=== PATIENT | male | born 1955 | race Caucasian/White ===

== ENCOUNTER 2022-12-17 16:22 | Observation (INO) ==
--- NOTE | 2022-12-17 16:42 | ED Triage Note ---
Date of Service December 17, 2022 History of Present Illness This patient was briefly evaluated while in triage. An abbreviated physical exam was performed. This patient is a 67-year-old Male with past medical history of borderline DM who presents to the ED for evaluation of testicular pain, reports history of 2 cysts toward the left side that started 3-4 days. No fevers, no urinary symptoms. Denies trauma/injury to the area. Physical Exam CONSTITUTIONAL: No acute distress. Well appearing. RESPIRATORY: Clear to auscultation bilaterally. Equal expansion bilaterally. CARDIOVASCULAR: Regular rate and rhythm with no murmurs, rubs or gallops. Normal peripheral perfusion. GASTROINTESTINAL: Soft, nontender. No CVA tenderness. NEUROLOGIC: Alert and oriented X 4 with normal affect. Initial orders for labs and / or imaging were placed and patient was placed in the waiting area until a bed is available. Please see further documentation for the full ED course.
[2022-12-17 18:05] LABS: Basophils # (auto) 0.04 K/uL (0-0.2); Basophils % (auto) 0.6 %; Eosinophils # (auto) 0.22 K/uL (0-0.50); Eosinophils % (auto) 3.2 %; Hematocrit (blood only) 43.8 % (42.0-52.0); Hemoglobin 15.7 g/dl (14.0-18.0); Immature Granulocytes # (auto) 0.01 K/uL (0.01-0.20); Immature Granulocytes % (auto) 0.1 %; Lymphocytes # (auto) 1.48 K/uL (1.2-3.4); Lymphocytes % (auto) 21.4 %; Mean Corpuscular Hemoglobin 32.2 pg (25.0-34.0); Mean Corpuscular Hgb Conc 35.8 g/dL (32.0-36.0); Mean Corpuscular Volume 89.8 fL (80.0-100.0); Mean Platelet Volume 10.2 fL (9.4-12.4); Monocytes # (auto) 0.61 K/uL (0.11-0.59); Monocytes % (auto) 8.8 %; Neutrophils # (auto) 4.54 K/uL (1.40-6.50); Neutrophils % (auto) 65.9 %; Platelet Count 132 K/uL (130-400); RDW Coefficient of Variation 11.4 % (11.5-14.5); RDW Standard Deviation 37.2 fL (36.4-46.3); Red Blood Count 4.88 M/uL (4.70-6.10)
[2022-12-17 18:36] LABS: Alanine Aminotransferase 55 U/L (7-52); Albumin Globulin Ratio 1.7 (0.9-2); Albumin Level 4.7 gm/dl (3.4-5.0); Alkaline Phosphatase 67 U/L (34-104); Anion Gap 6 (3-11); Aspartate Aminotransferase 35 U/L (13-39); BUN Creatinine Ratio 15.1 (10-20); Bilirubin,Total 0.7 mg/dl (0.2-1.0); Blood Urea Nitrogen 13 mg/dl (6-23); Calcium 10.6 mg/dl (8.5-10.1); Carbon Dioxide 30 mmol/L (21-32); Chloride 94 mmol/L (98-107); Est GFR (Non-African American) 89.7 ml/min; Globulin 2.7 gm/dl (2.5-4.0); Glucose 523 mg/dl (70-99(Fasting)); Potassium 4.7 mmol/L (3.5-5.1); Sodium 130 mmol/L (136-145); Total Protein 7.4 gm/dl (6.0-8.3)
--- NOTE | 2022-12-17 18:37 | Ultrasound Report ---
TESTICULAR ULTRASOUND HISTORY: Scrotal lumps. testicle pain/swelling, reports feeling lumps COMPARISON: None. FINDINGS: Right testis: 4.0 x 2.2 x 2.7 cm. There are no intratesticular masses. Normal color flow. No hydrocel e. The epididymis is unremarkable. Left testis: 3.5 x 2.1 x 2.4 cm. Small varicocele is noted. There are no intratesticular masses. Norm al color flow. No hydrocele. The epididymis is unremarkable. Miscellaneous: The patient's area of interest within the posterior scrotum and perineum there are 2 c omplex subcutaneous nodules measuring 20 x 20 x 12 mm and 9 x 7 x 5 mm, respectively. IMPRESSION: 1. Normal bilateral testes. 2. Small left varicocele. 3. Complex subcutaneous nodules within the posterior scrotum and perineum at the patient's area of in [facility]. These are nonspecific but could be due to granulomas or phlegmon/developing abscesses. ACT 112: Negative or not required by law. Electronically signed by: Delgado Wells M.D. 12/17/2022 6:35 PM
[2022-12-17] MEDS ORDERED: PIPERACILLIN/TAZOBACTAM 4.5 GM/120 ML BAG IV ONE (21:07)
[2022-12-17] MEDS ORDERED: ACETAMINOPHEN 1,000 MG/100 ML VIAL IV STA (21:07)
[2022-12-17] MEDS ORDERED: SODIUM CHLORIDE 0.9% 1000ML 1,000 ML IV ONE (21:07)
--- NOTE | 2022-12-17 21:23 | Urology Consultation ---
Date of Consultation December 17, 2022 Assessment & Plan (1) Scrotal abscess: I discussed with the treating emergency room physician and he is having the hospitalist admit the patient. We recommend proceeding as follows: It appears as though the patient will require an incision and drainage of his 2 scrotal abscesses. I discussed case with my attending physician Dr. Andrea and he feels that we should get a CT scan of the pelvis just to ascertain the depth in more detail of the potential abscess. Based on this information he will decide if he can perform this at the bedside or if you require a trip to the operating room. Implement n.p.o. status until determination is made what procedure invention the patient will require Broad-spectrum antibiotics was been ordered by the treating emergency room physician in the form of Zosyn. Would recommend continuing this antibiotic. Blood cultures have been ordered along with a urinalysis. Antibiotics can be tailored based on these results along with any cultures that are obtained at the time of incision and drainage of this abscess Analgesics to be provided As needed antiemetics can be provided Would recommend hydrating the patient with IV fluids It also appears as though the patient is a new diabetic. The medical service is admitting the patient and they will perform management of this condition. Additional recommendations be forthcoming based on his pending CAT scan as well as results of incision and drainage ATTENDING NOTE: Patient independently evaluated and assessed examined and interviewed. Agree with note as above. Patient has 2 fluid collections on the scrotum. Has developed and worsened over the last few days. Patient had previously been doing with some discomfort in the groin and testicle was concerned due to the large fluid collection that had started to develop. Did notice some drainage as well as debris over top of the area. Did not have a considerable drainage or spontaneous drainage to alleviate pressure. Worsened in pain and developed warmth, redness, swelling, tenderness, and irregular coloring. Patient had 2 specific areas 1 was more of a vesicular/pimple area in the left posterior scrotum. On the anterior portion of the right scrotum was a more significant swollen fluctuant area. Both areas were consistent with abscess on physical exam. Patient had undergone scrotal ultrasound as well as CT scan. No signs of tracking no inclusion of the tissues below the subcutaneous tissues. The testicles and spermatic cord both appear to be free from any involvement in the area. Extensive conversation with patient. Patient is newly diagnosed as diabetic. Blood sugars were considerably elevated. Patient is going to be admitted for medical management. Due to findings of scrotal abscess with concern for possible worsening infection as well as development of more significant disease risk and benefits were extensively reviewed. Patient had eaten around 2:00 today. Reviewed bedside option. Patient had previously had abscess on leg which he stated was drained at bedside and he tolerated without major issue. Patient was given a course of analgesic medication IV in order to control pain had been given Zosyn preprocedure. A consent was filled out and signed by the patient a witness and myself. Risk and benefits have been extensively reviewed. Incision and drainage and packing of abscess x2. Abscess of the right and left hemiscrotum. Right scrotal abscess dimensions 1.8 x 2.7 x 3.4 cm. Left scrotal abscess 1.1 x 1.3 x 1.7 cm's. Procedure performed by: Alf Andrea II Indications: Scrotal abscess. Newly diagnosed diabetic. Discussed with patient risks, benefits, and alternatives. These include, but are not limited to, risks of bleeding, infection risks and possible injury. Risks and benefits of not proceeding and observation alternatives were discussed extensively. Discussed utilization of IV antibiotics for treatment. Discussed possible issues with development of cellulitis, more significant infection possible septicemia, and development of fasciitis with possibility of necrotizing fasciitis/Tushar's gangrene. Written consent was obtained prior to the procedure Time Out: Completed, the identity of patient was confirmed via name and date of , by patient and the correct site and the procedure to be performed were confirmed Bilateral incision and drainage. Anesthesia: 1% lidocaine with epi was injected around both of the large abscesses. Patient was prepped and draped in the usual sterile fashion using: betadine The lesions were inspected. After adequate injection of lidocaine into the surrounding tissue. Additional lidocaine was injected into the area around the abscess and over top of the lesions bilaterally. A aspiration was completed of the larger abscess and this fluid was sent off for microbiologic examination. A culture was completed of this fluid. A 11 blade scalpel was then used to make an incision approximately 2 cm in length into the abscess over the right hemiscrotum. A large amount of purulent fluid was able to be drained. 2 major chambers were discovered. A probe was then used to get a deep wound culture. The wound opening was then probed extensively. Multiple additional small loculations were able to be open. Multiple areas of purulent fluid were able to be drained. The cavity was found to be down into the subcutaneous tissues. The tissue did appear to be viable with good blood flow and bleeding. No necrotic appearing tissue was noted. A small amount of abscess cavity had to be gently debrided away utilizing scissors to clear out the remainder of the cavity. This was then irrigated copiously. After completing the flushing of this wound and attention was then taken to the abscess in the posterior portion of the left hemiscrotum. Again this area has been prepped and draped in the sterile fashion. The local lidocaine has been adequately able to achieve anesthetic. A incision was made into this abscess cavity as well. The incision length was approximately 1.3 cm in length. This cavity was then probed. Again a moderate amount of purulent fluid was able to be drained. This also had a small area of abscess cavity that need to be debrided away utilizing sharp scissors. The area was then copiously flushed. It was probed multiple times and some small chamber/loculations were able to be freed. This was then irrigated copiously. Sterile saline was used for irrigation. Both wounds were then inspected. No signs of necrotic material or debris. No further loculations or other chambers or runs. The area was cleaned and irrigated a final time. A iodoform packing was then placed into each of the wounds. The packing had been folded in half and placed into the deep portion of the cavity and packed. At the wound opening of each 2 strands of each and were able to be seen of the packing. The patient was then further cleaned. Bandages were placed over the area. Patient had tolerated the procedure without major issue or concern. Had no cons iderable amount of pain or major issues. The tissue appeared to be viable and was bleeding after opening however a large amount of bleeding or major issue was not appreciated. Patient Status: Tolerated procedure well with minimal discomfort. Vital signs were stable Complications: No complications Patient Instructions: Patient was instructed to monitor and to notify a provider for bleeding, signs and symptoms of UTI, or fevers. Call if any issues. Patient is going to be transferred to the floor for observation overnight. Patient is newly diagnosed as diabetic. We will need to undergo further assessment and work-up as well as management of this over time. Patient's vitals have been assessed both pre and post procedure. Temperature was 36.8. Oxygen saturation was 98%. Blood pressure was 115/68 and pulse was 68. Patient's white count was 6.9. Creatinine was 0.86. Hemoglobin was 15.7. Patient scrotal ultrasound as well as CT scan were both reviewed interpreted by myself. The house staff reads were not yet available. No obvious signs of tracking into the deep or inguinal tissues. Both abscess cavities appear to be well contained. And appear to be in the subcutaneous tissue/skin. Discussed plan with patient need for wound care afterwards. Discussed healing by secondary intent. Discussed dressing and wound care. We will likely need to be seen by wound care nurses in the morning to schedule follow-up and monitoring and management of packing over the next few days. Will likely need to have packing changed every day or every other day for the next week to 2 weeks. We will likely need a oral antibiotic to go home on for the next 7 to 10 days. We will await the cultures and be able to de-escalate based on the analysis. Had currently had Zosyn preprocedure and tolerated without major issue. Patient is not from the area and he is likely leaving in the next 10 to 14 days. We will likely need follow-up in our office prior to this. Patient's complicat ed medical and surgical history was all reviewed and summarized above. All imaging has been reviewed. Labs and vitals were reviewed and mentioned as above. 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 Otherwise we will plan to monitor overnight and be available if the team needs anything further. Patient did have some additional small areas of possible sebaceous cyst in the scrotal region. None appear to be actively infected or significantly enlarging or changing. Did discuss diabetes and risk of infections and abscess with some of the sequelae of diabetic issues. Patient is going to actively work on controlling blood sugars moving forward. We will otherwise plan to move forward to monitor. History of Present Illness Reason for Consultation: Scrotal abscess History of Present Illness This is a 67-year-old male who presented to the emergency department secondary to 4 days of testicular swelling. The patient said that he noted a lump and swelling of his testicles greatest on the right testicle. He also noted a smaller one on the left side near his perineum. He notes it was initially the size of a peanut but has nearly tripled in size over the past 4 days. He says with the increase in size it has become increasingly tender. He says he has never had this problem before. He denies any trauma, cuts, or insect or tick bites to this area. With this presentation he has not had any systemic symptoms specifically denying any fevers, shakes, or chills. He denies any abdominal pain. He denies any nausea or vomiting. He denies any dysuria. It is nowhere the mention that the patient denies any previous medical problems. He says that he does not see a doctor regularly. He notes that his most recent oral intake was at approximately 2:00 PM today. Since arrival to the hospital the patient has had labs and imaging which independent reviewed. He did have an ultrasound of his testicles performed. The testicles were noted to be normal bilaterally and he was noted to have a small left-sided varicocele. There are 2 complex subcutaneous nodules noted measuring 20 x 20 x 12 mm and another measuring 9 x 7 x 5 mm respectively. Labs included CBC her white blood cell count, hemoglobin, hematocrit, platelet count were all normal. Chemistry profile showed sodium was 130 with a normal potassium. BUN and creatinine were both normal. Patient presented with a glucose level of 523. There is no significant elevation of LFTs other than a minor elevation of the ALT at 55. Thus far in the emergency department the patient has received intravenous acetaminophen for analgesics. He has received 1 L of normal saline solution and he has received 4.5 g of Zosyn. At the time of my interview the patient was resting comfortably in bed he was in no distress. Concerning past medical history the patient denies any medical problems Concerning past surgical history the patient has had multiple orthopedic procedures including 2 neck surgeries, knee surgery, and a shoulder surgery all secondary to athletic injuries Concerning allergies he denies any allergies Concerning medications he says he takes an aspirin daily Social history he says he is a non-smoker and has been a lifetime non-smoker Concerning family history he says he does have an uncle who is diabetic Allergies Allergy/AdvReac Type Severity Reaction Status Date / Time No Known Allergies Allergy Verified 12/17/22 21:15 Home Medications Medication Instructions Recorded Confirmed Type aspirin 325 mg tablet,delayed 975 mg PO DAILY 12/17/22 12/17/22 History release Patient History Social History Smoking Status: Never smoker Preferred Language: Croatian Feels Safe at Home: Yes Review of Systems Constitutional: no fever and no chills Eyes: + corrective lenses Ear, Nose, Mouth, Throat: no ear pain Respiratory: no cough and no dyspnea Cardiovascular: no chest pain Gastrointestinal: no abdominal pain, no nausea and no vomiting Genitourinary: + as per Subjective / HPI Musculoskeletal: no back pain Integumentary: no rash Neurologic: no localized weakness Physical Exam Constitutional: WD/WN, vitals as above Eyes: no conjunctival abnormality Wears glasses ENMT: Ears: no hearing impairment and no external ear abnormality Mouth: no oropharynx abnormality Neck: trachea midline Respiratory: normal respiratory effort; no respiratory distress and no labored breathing Cardiovascular: Rate/Rhythm: regular rate and regular rhythm Gastrointestinal (Abdomen): Abdomen is soft, nondistended, and nontender. Musculoskeletal: No calf tenderness Skin: no rashes Neurologic: moves all extremities Psychiatric: A+Ox3, euthymic affect Genitourinary: The patient's scrotum/perineum was examined. There not appear to be any lesions or erythema on the shaft of the patient's penis. On the patient's scrotum on the right side there appeared to be approximately a 1 to 2 cm area of erythema with some induration and fluctuance. The area was nondraining and tender to palpation. On the left side just anterior to the patient's perineum there is approximately a 2 cm area of erythema with some fluctuance. There were no open areas of drainage. There is no crepitus in any of the soft tissue. There were no areas of scar or eschar. Results & Data ([facility]) Vital Signs (Past 12 Hours) Vital Signs Temp Pulse Resp BP Pulse Ox O2 Del Method 12/17/22 16:38 36.8 C 91 H 16 161/85 H 96 Room Air PG Care Time/CCT Total # of Minutes Spent Total Time Spent with Patient: Total time spent is greater than 50% in coordination of care (as documented) at patient's floor/unit and/or counseling patient: Coding Level of Care Code 39688 INT INP/OBS CARE 3/75MIN Diagnoses Scrotal abscess N49.2
--- NOTE | 2022-12-17 21:51 | History & Physical Report ---
Date of Service December 17, 2022 Assessment & Plan (1) Scrotal abscess: Plan: 67-year-old male with newly diagnosed diabetes presenting with scrotal abscesses status post bedside I&D performed by urology today. Patient is afebrile, hemodynamically stable, nontoxic in appearance. Normal WBC count. He was given 4.5 g of Zosyn prior to the procedure. Observation to medical Appreciate urology consultation Continue Zosyn Wound care as needed Morphine as needed for pain Colace as needed for constipation Patient takes quite a bit of aspirin at home. Reports 975 mg daily. No tinnitus reported. Check salicylate level Hold aspirin (2) Elevated blood sugar: Plan: Patient with elevated blood sugar = 523 on arrival. He has no previous diagnosis of diabetes. Of note, he does not routinely follow-up with primary care physician. He denies polydipsia or polyuria. Suspect new onset diabetes. Blood sugar most likely acutely worsened by infection as well as dietary intakepatient reports he drank quite a bit of apple juice prior to arrival. Blood sugar improved to 332 after IV fluids Administer 7 units of regular insulin subcutaneous Check hemoglobin A1c Lantus 7 units twice daily with insulin sliding scale Consult diabetes education Patient does not routinely see a PCP. He lives part-time in [place]. Have placed case management consultation to assist with establishing care with PCP. F/E/Nnormal saline at 100 mL/h x 2 L, monitor electrolytes and replete as needed, consistent carb diet as tolerated Prophylaxispatient is low risk for DVT, encourage ambulation as tolerated Codefull Dispositionobservation to medical History of Present Illness Chief Complaint: scrotal pain Primary Care Provider: NO PCP Dion Pedraza is a 67yo male presenting with scrotal swelling and tenderness. He noted progressive symptoms ongoing for the last 4-5 days. He first noted a small swollen area about the "size of a regular M&M" which then progressed to the "size of a peanut M&M" then "a small mendez tomato". He now notes 3 areas of swelling/tenderness. His swelling and tenderness worsened over the last two days. He feels tenderness between his testicles. He denies fever, chills, nausea, vomiting, abdominal pain. No complaint of chest pain, palpitations, SOB. No additional complaints at this time. In the ER he is afebrile, hypertensive. Found to have elevated blood sugar of 523. Patient with no formal diagnosis of diabetes. He reports drinking a quart of apple juice prior to arrival. Patient had bilateral incision and drainage performed by urology at the bedside while in the ER. No signs of necrotic material or debris. ER Course: Morphine 2 mg IV Zosyn 4.5 g IV Tylenol 1 g IV Normal saline x1 L Allergies Allergy/AdvReac Type Severity Reaction Status Date / Time No Known Allergies Allergy Verified 12/17/22 21:15 Home Medications Medication Instructions Recorded Confirmed Type aspirin 325 mg tablet,delayed 975 mg PO DAILY 12/17/22 12/17/22 History release Past Med/Surg History Medical History Elevated blood sugar Scrotal abscess Surgical History History of cervical spinal surgery cervical hardware in place History of knee surgery History of shoulder surgery Family History Other Family history non-contributory Social History (Updated 12/18/22 @ 00:27 by Carolyn Ortiz DO) Smoking Status: Never smoker Hx Alcohol Use: Yes Hx Substance Use: No Preferred Language: Lithuanian Feels Safe at Home: Yes Review of Systems Review of Systems: All systems reviewed & are unremarkable except as noted in HPI & below Physical Exam Physical Exam: General: patient resting comfortably, NAD, non-toxic in appearance, AA&O x 4 Skin: warm, dry, intact, no rashes or lesions HEENT: NC/AT, PERRL, EOMI, anicteric sclera, conjunctiva without injection, external ear normal to inspection and nontender, nares patent, moist mucus membranes, dentition intact, no oropharyngeal lesions, neck supple, trachea midline, no LAD, no thyromegaly, no JVD Heart: +S1/S2, regular, no m/r/g Lungs: equal air entry bilaterally, no rales/rhonchi/wheezes Abd: +BS, soft, NT/ND, no masses/organomegaly/ascites exam per urology note Ext: warm, 2+ pulses in UE/LE bilaterally, no clubbing/cyanosis or edema Neuro: nonfocal, patient AA&O x 4, speech intact, no facial droop, moving all extremities on command with equal strength 5/5 Results & Data Results & Data ([facility]) Vital Signs (Past 12 Hours) Vital Signs Temp Pulse Resp BP Pulse Ox O2 Del Method 12/17/22 16:38 36.8 C 91 H 16 161/85 H 96 Room Air Laboratory Results Laboratory Results WBC 6.90 K/ul (4.8-10.8) 12/17/22 17:37 RBC 4.88 M/uL (4.70-6.10) 12/17/22 17:37 Hgb 15.7 g/dl (14.0-18.0) 12/17/22 17:37 Hct 43.8 % (42.0-52.0) 12/17/22 17:37 MCV 89.8 fL (80.0-100.0) 12/17/22 17:37 MCH 32.2 pg (25.0-34.0) 12/17/22 17:37 MCHC 35.8 g/dL (32.0-36.0) 12/17/22 17:37 RDW Std Deviation 37.2 fL (36.4-46.3) 12/17/22 17:37 RDW Coeff of Elier 11.4 % (11.5-14.5) L 12/17/22 17:37 Plt Count 132 K/uL (130-400) 12/17/22 17:37 MPV 10.2 fL (9.4-12.4) 12/17/22 17:37 Immature Gran % (Auto) 0.1 % 12/17/22 17:37 Neut % (Auto) 65.9 % 12/17/22 17:37 Lymph % (Auto) 21.4 % 12/17/22 17:37 [place]urt[place] % (Auto) 8.8 % 12/17/22 17:37 Eos % (Auto) 3.2 % 12/17/22 17:37 Baso % (Auto) 0.6 % 12/17/22 17:37 Neut # (Auto) 4.54 K/uL (1.40-6.50) 12/17/22 17:37 Lymph # (Auto) 1.48 K/uL (1.2-3.4) 12/17/22 17:37 [place]urt[place] # (Auto) 0.61 K/uL (0.11-0.59) H 12/17/22 17:37 Eos # (Auto) 0.22 K/uL (0-0.50) 12/17/22 17:37 Baso # (Auto) 0.04 K/uL (0-0.2) 12/17/22 17:37 Immature Gran # (Auto) 0.01 K/uL (0.01-0.20) 12/17/22 17:37 Sodium 130 mmol/L (136-145) L 12/17/22 17:37 Potassium 4.7 mmol/L (3.5-5.1) 12/17/22 17:37 Chloride 94 mmol/L (98-107) L 12/17/22 17:37 Carbon Dioxide 30 mmol/L (21-32) 12/17/22 17:37 Anion Gap 6 (3-11) 12/17/22 17:37 BUN 13 mg/dl (6-23) 12/17/22 17:37 Creatinine 0.86 mg/dl (0.6-1.4) 12/17/22 17:37 Est Cr Clr Drug Dosing Not Reportable 12/17/22 17:37 Est GFR ( Amer) 104.0 ml/min 12/17/22 17:37 Est GFR (Non-Af Amer) 89.7 ml/min 12/17/22 17:37 BUN/Creatinine Ratio 15.1 (10-20) 12/17/22 17:37 Glucose 523 mg/dl (70-99(Fasting)) H* 12/17/22 17:37 POC Glucose 332 mg/dl (70-99) H* 12/17/22 20:59 Lactate 1.1 mmol/L (0.4-2.0) 12/17/22 22:24 Calcium 10.6 mg/dl (8.5-10.1) H 12/17/22 17:37 Total Bilirubin 0.7 mg/dl (0.2-1.0) 12/17/22 17:37 AST 35 U/L (13-39) 12/17/22 17:37 ALT 55 U/L (7-52) H 12/17/22 17:37 Alkaline Phosphatase 67 U/L (34-104) 12/17/22 17:37 Total Protein 7.4 gm/dl (6.0-8.3) 12/17/22 17:37 Albumin 4.7 gm/dl (3.4-5.0) 12/17/22 17:37 Globulin 2.7 gm/dl (2.5-4.0) 12/17/22 17:37 Albumin/Globulin Ratio 1.7 (0.9-2) 12/17/22 17:37 Procalcitonin 0.10 ng/ml (0-0.5) 12/17/22 22:24 SARS-CoV-2, RNA, NAAT NEGATIVE (NEGATIVE) 12/17/22 21:33 Impressions Scrotum Ultrasound 12/17/22 16:42 TESTICULAR ULTRASOUND HISTORY: Scrotal lumps. testicle pain/swelling, reports feeling lumps COMPARISON: None. FINDINGS: Right testis: 4.0 x 2.2 x 2.7 cm. There are no intratesticular masses. Normal color flow. No hydrocele. The epididymis is unremarkable. Left testis: 3.5 x 2.1 x 2.4 cm. Small varicocele is noted. There are no intratesticular masses. Normal color flow. No hydrocele. The epididymis is unremarkable. Miscellaneous: The patient's area of interest within the posterior scrotum and perineum there are 2 complex subcutaneous nodules measuring 20 x 20 x 12 mm and 9 x 7 x 5 mm, respectively. IMPRESSION: 1. Normal bilateral testes. 2. Small left varicocele. 3. Complex subcutaneous nodules within the posterior scrotum and perineum at the patient's area of interest. These are nonspecific but could be due to granulomas or phlegmon/developing abscesses. ACT 112: Negative or not required by law. Electronically signed by: Delgado Wells M.D. 12/17/2022 6:35 PM PG Care Time/CCT Total # of Minutes Spent Total Time Spent with Patient: Total time spent is greater than 50% in coordination of care (as documented) at patient's floor/unit and/or counseling patient: Coding Level of Care Code 90598 INT INP/OBS CARE 2/55MIN Diagnoses Scrotal abscess N49.2 Elevated blood sugar R73.9
[2022-12-17] MEDS ORDERED: Patient's HEIGHT &/or WEIGHT Needed SCH (23:00)
[2022-12-17] MEDS ORDERED: LIDOCAINE 1%/EPINEPHRINE 1:100,000 50 ML VIAL ONE (23:12)
[2022-12-17] MEDS ORDERED: MoRPHine SULFATE 2 MG/ML CARP IV STA (23:29)
[2022-12-17] MEDS ORDERED: MoRPHine SULFATE 2 MG/ML CARP ONE (23:30)
[2022-12-18] MEDS ORDERED: NovoLIN-R INSULIN PER UNIT CHARGE SC STA (00:31)
[2022-12-18] MEDS ORDERED: GLUCOSE 40% GEL 15 GM TUBE PO PRN (00:43)
[2022-12-18] MEDS ORDERED: GLUCOSE 10 TAB/TUBE PO PRN (00:43)
[2022-12-18] MEDS ORDERED: DOCUSATE SODIUM 100 MG CAP PO PRN (00:43)
[2022-12-18] MEDS ORDERED: GLUCAGON FOR INJ 1 MG VIAL SQ PRN (00:43)
[2022-12-18] MEDS ORDERED: ONDANSETRON INJ 2 MG/ML 2 ML VIAL IV PRN (00:43)
[2022-12-18] MEDS ORDERED: CARBOHYDRATES FOR HYPOGLYCEMIA PO PRN (00:43)
[2022-12-18] MEDS ORDERED: ACETAMINOPHEN 325 MG TAB PO PRN (00:43)
[2022-12-18] MEDS ORDERED: DEXTROSE 50% 50 ML SYRINGE IV PRN (00:43)
[2022-12-18] MEDS ORDERED: INSULIN ASPART PER UNIT SC STA (01:01)
[2022-12-18] MEDS: SODIUM CHLORIDE 0.9% 1000ML 1,000 ML IV SCH ×2 (01:23→11:47)
[2022-12-18] MEDS ORDERED: Flu Vaccine-High Dose (Fluzone-HD) PF 65+ 0.7mL SYR IM ONE (02:30)
[2022-12-18] MEDS: PIPERACILLIN/TAZOBACTAM 3.375 GM in DEXTROSE 5% 100 ML IV SCH ×3 (04:10→20:46)
--- NOTE | 2022-12-18 04:30 | Emergency Department Note ---
Impression & Plan Scrotal abscess, Hyperglycemia, Pain in scrotum, Elevated hemoglobin A1c ED Provider Note NAME: JOÃO RAMIREZ AGE: 67 SEX: M ARRIVES VIA: Walk-In INFORMANT: Patient ED PROVIDER(S): Kervin Falk MD CHIEF COMPLAINT: Scrotal pain, cysts. PLAN: Disposition: Admit MEDICAL DECISION MAKING: The patient is a pleasant 67-year-old gentleman with no prior medical history with no recent follow-up with medical care who presents to emergency to the department for evaluation of worsening scrotal pain with " cysts" in his scrotum that has been increasing in size and been painful. He reports remotely had similar lumps on his left upper thigh that "popped and had some blood and pus" and then resolved. He denies any fevers, chills, nausea, vomiting, diarrhea or urinary symptoms. He denies any urethral discharge. Patient reports he has not followed regularly with a doctor in some time as has he had to travel frequently for his work previously. Of note, the patient did arrive to emergency department during time of high volume, acuity and prolonged emergency department waiting times. Critical pathways initiated from triage. Upon my evaluation the patient is in no acute distress, afebrile with blood pressure 160s/80s and vital signs otherwise stable. Examination patient's scrotum demonstrates 2 cm area of fluctuance in the right posterior scrotum and a 1 cm area of fluctuance in the left posterior scrotum with mild erythema warmth, induration and mild tenderness without crepitus. Abdomen is nontender. Exam is otherwise unremarkable. WBC, H/H and platelets within normal limits. Chemistry with glucose of 523 without metabolic acidosis. Electrolytes without significant abnormality. ALT mildly elevated 55, nonspecific and LFTs otherwise normal. Procalcitonin is not elevated. COVID-19, RNA, JOSÉ MIGUEL test was negative. Repeat PSG following IV hydration improved to 300s. Hbg A1c pending. Patient was treated with IV Zosyn and vancomycin to initiate treatment. Given suspected new onset diabetes with scrotal abscess/infection patient agrees with plan for admission. Case was discussed with Aguila Lockwood, urology/surgery PAC with Dr. Andrea Urology on-call. Case was discussed with Dr. Ortiz, [facility] hospitalist, who will evaluate the pa tient for admission. Further management per admitting team. Triage Nursing notes reviewed and agree them. Prior/outside medical records reviewed Vital Signs: reviewed Differential diagnosis: Cellulitis, abscess, MRSA infection, DVT, necrotizing fasciitis, dermatitis, drug eruption, allergic reaction, as well as other pathologies. ER treatment provided: See below. Diagnostics interpreted by me: Cardiac Monitoring: An order for continuous cardiac monitoring was placed and demonstrated normal sinus rhythm, 93 bpm, no ectopy. Laboratory studies: See below Imaging studies: See below Consultation(s): Case was discussed with Aguila Lockwood, urology/surgery PAC with Dr. Andrea Urology on-call. Case was discussed with Dr. Ortiz, [facility] hospitalist, who will evaluate the patient for admission. HPI: The patient is a pleasant 67-year-old gentleman with no prior medical history with no recent follow-up with medical care who presents to emergency to the department for evaluation of worsening scrotal pain with " cysts" in his scrotum that has been increasing in size and been painful. He reports remotely had similar lumps on his left upper thigh that "popped and had some blood and pus" and then resolved. He denies any fevers, chills, nausea, vomiting, diarrhea or urinary symptoms. He denies any urethral discharge. Patient reports he has not followed regularly with a doctor in some time as has he had to travel frequently for his work previously. ROS: See above HPI for pertinent positives & negatives. A total of 10 systems reviewed and were otherwise negative. VITALS:See Below PHYSICAL EXAMINATION: GENERAL: Awake, alert, well-appearing, in no distress HENT: Normocephalic, atraumatic. Oropharynx with dry mucous membranes and otherwise unremarkable. EYES: Normal conjunctiva. Sclera non-icteric. NECK: Supple. No nuchal rigidity. FROM. No JVD. RESPIRATORY: Clear to auscultation. CARDIAC: Regular rate, normal rhythm. Extremities warm and well perfused. Pulses equal. ABDOMEN: Soft, non-distended. No tenderness to palpation. No rebound or guarding. No masses. RECTAL: Deferred. MUSCULOSKELETAL: Chest examination reveals no tenderness. The back is s ymmetrical on inspection without obvious abnormality. There is no CVA tenderness to palpation. No joint edema. LOWER EXTREMITIES: Calves are equal size bilaterally and non-tender. No edema. No discoloration. NEURO: Normal sensorium. No sensory or motor deficits noted. SKIN: No rash or jaundice noted. ED COURSE: Critical Care: I have personally spent greater than 35 minutes of critical care time in the direct management of this patient. This includes bedside care, interpretation of diagnostic studies, and testing, discussion with consultants, patient, and family members, and other required patient management activities. This 35 minutes is in excess of all separately billable procedures. Kervin Falk MD Past Med/Surg History Medical History Elevated blood sugar Scrotal abscess Surgical History History of cervical spinal surgery cervical hardware in place History of knee surgery History of shoulder surgery Family History Other Family history non-contributory Social History (Updated 12/18/22 @ 00:27 by Carolyn Ortiz DO) Smoking Status: Never smoker Second Hand Exposure: No; Hx Alcohol Use: Yes Alcohol type: beer Hx Substance Use: No Preferred Language: Slovak Communication Ability: Effective Patient Scheduling Manager Required: No Beliefs That Will Affect Care: None Current Living Situation: Alone Other Information That Helps Us Care for You: No Feels Safe at Home: Yes Safety Concerns: Feels Safe At This Time Assistive Devices: None Allergies Allergies Allergy/AdvReac Type Severity Reaction Status Date / Time No Known Allergies Allergy Verified 12/17/22 21:15 Home Meds Home Medications Medication Instructions Recorded Confirmed aspirin 325 mg tablet,delayed 975 mg PO DAILY 12/17/22 12/17/22 release Results & Data (ED) Vital Signs Vital Signs - 24 hr 12/17/22 16:38 Temperature 36.8 C Temperature Source Temporal Artery Scan Pulse Rate 91 H Respiratory Rate 16 Respiratory Depth Normal Blood Pressure 161/85 H Blood Pressure Mean 110 Pulse Oximetry 96 Oxygen Delivery Method Room Air Sepsis Recent Fever Within 48 Hours No Sepsis New/Unexplained Change in Mental Status No Sepsis Action Taken by Nursing No Action Required Laboratory Data Attestation: I reviewed the patient's lab results. 12/17/22 17:37 12/17/22 17:37 Lab Results 12/17/22 12/17/22 12/17/22 Range/Units 17:37 17:37 17:37 WBC 6.90 (4.8-10.8) K/ul RBC 4.88 (4.70-6.10) M/uL Hgb 15.7 (14.0-18.0) g/dl Hct 43.8 (42.0-52.0) % MCV 89.8 (80.0-100.0) fL MCH 32.2 (25.0-34.0) pg MCHC 35.8 (32.0-36.0) g/dL RDW Std Deviation 37.2 (36.4-46.3) fL RDW Coeff of Elier 11.4 L (11.5-14.5) % Plt Count 132 (130-400) K/uL MPV 10.2 (9.4-12.4) fL Immature Gran % (Auto) 0.1 % Neut % (Auto) 65.9 % Lymph % (Auto) 21.4 % Colbert % (Auto) 8.8 % Eos % (Auto) 3.2 % Baso % (Auto) 0.6 % Neut # (Auto) 4.54 (1.40-6.50) K/uL Lymph # (Auto) 1.48 (1.2-3.4) K/uL Colbert # (Auto) 0.61 H (0.11-0.59) K/uL Eos # (Auto) 0.22 (0-0.50) K/uL Baso # (Auto) 0.04 (0-0.2) K/uL Immature Gran # (Auto) 0.01 (0.01-0.20) K/uL Sodium 130 L (136-145) mmol/L Potassium 4.7 (3.5-5.1) mmol/L Chloride 94 L (98-107) mmol/L Carbon Dioxide 30 (21-32) mmol/L Anion Gap 6 (3-11) BUN 13 (6-23) mg/dl Creatinine 0.86 (0.6-1.4) mg/dl Est Cr Clr Drug Dosing Not Reportable Est GFR ( Amer) 104.0 ml/min Est GFR (Non-Af Amer) 89.7 ml/min BUN/Creatinine Ratio 15.1 (10-20) Glucose 523 H* (70-99(Fasting)) mg/dl POC Glucose (70-99) mg/dl Estimat Average Glucose 309 mg/dl Hemoglobin A1c 12.4 H (4.5-5.6) % Calcium 10.6 H (8.5-10.1) mg/dl Total Bilirubin 0.7 (0.2-1.0) mg/dl AST 35 (13-39) U/L ALT 55 H (7-52) U/L Alkaline Phosphatase 67 (34-104) U/L Total Protein 7.4 (6.0-8.3) gm/dl Albumin 4.7 (3.4-5.0) gm/dl Globulin 2.7 (2.5-4.0) gm/dl Albumin/Globulin Ratio 1.7 (0.9-2) Procalcitonin SARS-CoV-2, RNA, NAAT (NEGATIVE) 12/17/22 12/17/22 12/17/22 Range/Units 17:37 20:59 21:33 WBC (4.8-10.8) K/ul RBC (4.70-6.10) M/uL Hgb (14.0-18.0) g/dl Hct (42.0-52.0) % MCV (80.0-100.0) fL MCH (25.0-34.0) pg MCHC (32.0-36.0) g/dL RDW Std Deviation (36.4-46.3) fL RDW Coeff of Elier (11.5-14.5) % Plt Count (130-400) K/uL MPV (9.4-12.4) fL Immature Gran % (Auto) % Neut % (Auto) % Lymph % (Auto) % Colbert % (Auto) % Eos % (Auto) % Baso % (Auto) % Neut # (Auto) (1.40-6.50) K/uL Lymph # (Auto) (1.2-3.4) K/uL Colbert # (Auto) (0.11-0.59) K/uL Eos # (Auto) (0-0.50) K/uL Baso # (Auto) (0-0.2) K/uL Immature Gran # (Auto) (0.01-0.20) K/uL Sodium (136-145) mmol/L Potassium (3.5-5.1) mmol/L Chloride (98-107) mmol/L Carbon Dioxide (21-32) mmol/L Anion Gap (3-11) BUN (6-23) mg/dl Creatinine (0.6-1.4) mg/dl Est Cr Clr Drug Dosing Est GFR ( Amer) ml/min Est GFR (Non-Af Amer) ml/min BUN/Creatinine Ratio (10-20) Glucose (70-99(Fasting)) mg/dl POC Glucose 332 H* (70-99) mg/dl Estimat Average Glucose mg/dl Hemoglobin A1c (4.5-5.6) % Calcium (8.5-10.1) mg/dl Total Bilirubin (0.2-1.0) mg/dl AST (13-39) U/L ALT (7-52) U/L Alkaline Phosphatase (34-104) U/L Total Protein (6.0-8.3) gm/dl Albumin (3.4-5.0) gm/dl Globulin (2.5-4.0) gm/dl Albumin/Globulin Ratio (0.9-2) Procalcitonin Cancelled SARS-CoV-2, RNA, NAAT NEGATIVE (NEGATIVE) Administered Medications Acetaminophen (Acetaminophen 325 Mg Tab) 650 mg PO Q6 BEN Stop: 01/17/23 12:29 Last Admin: 12/18/22 18:04 Dose: 650 mg Documented By: Admin: 12/18/22 13:02 Dose: 650 mg Documented By: BONNIE Piperacillin Sod/Tazobactam (Sod 3.375 gm/ Dextrose) 115 mls @ 28.75 mls/hr IV Q8H BEN; Protocol Stop: 12/28/22 03:59 Last Admin: 12/18/22 20:46 Dose: 28.8 mls/hr Documented By: Infusion: 12/18/22 16:54 Dose: 0 mls/hr Documented By: Admin: 12/18/22 12:56 Dose: 29 mls/hr Documented By: Infusion: 12/18/22 08:17 Dose: 0 mls/hr Documented By: Admin: 12/18/22 04:10 Dose: 28.8 mls/hr Documented By: VIVIENNE Insulin Aspart (Insulin Aspart Per Unit) 0 units SC ACHS BEN Stop: 01/17/23 07:29 Last Admin: 12/18/22 20:37 Dose: 6 units Documented By: VIVIENNE Co-signed By: JN Admin: 12/18/22 18:18 Dose: 10 units Documented By: BRISSA Co-signed By: YOSELIN Admin: 12/18/22 12:56 Dose: 13 units Documented By: BONNIE Co-signed By: BRISSA Admin: 12/18/22 09:58 Dose: 21 units Documented By: BONNIE Co-signed By: BRISSA Insulin Glargine (Lantus Per Unit Charge) 0 units SQ HS BEN; Protocol Stop: 12/18/22 23:59 Last Admin: 12/18/22 20:38 Dose: 10 units Documented By: VIVIENNE Co-signed By: JN Melatonin (Melatonin 3 Mg Tab) 3 mg PO HS PRN PRN Reason: Sleep Stop: 01/17/23 02:54 Last Admin: 12/18/22 20:37 Dose: 3 mg Documented By: VIVIENNE Morphine Sulfate (Morphine Sulfate 2 Mg/Ml Carp) 2 mg IV Q3H PRN PRN Reason: Pain Stop: 01/01/23 00:42 Last Admin: 12/18/22 15:42 Dose: 2 mg Documented By: BRISSA Oxycodone HCl (Oxycodone Hcl Ir 5 Mg Tab (Immediate Release)) 5 mg PO Q6H PRN PRN Reason: Pain Stop: 01/01/23 12:09 Last Admin: 12/18/22 18:19 Dose: 5 mg Documented By: Admin: 12/18/22 12:55 Dose: 5 mg Documented By: BONNIE Discontinued Medications Sodium Chloride (Nss 1000ml) 1,000 mls @ 999 mls/hr IV .Q1H1M ONE Stop: 12/17/22 22:07 Last Infusion: 12/18/22 00:48 Dose: 0 mls/hr Documented By: Admin: 12/17/22 21:39 Dose: 999 mls/hr Documented By: EMIGDIO Acetaminophen (Ofirmev) 1,000 mg in 100 mls @ 400 mls/hr IV NOW STA Stop: 12/17/22 21:21 Last Infusion: 12/17/22 21:56 Dose: 0 mls/hr Documented By: Admin: 12/17/22 21:39 Dose: 400 mls/hr Documented By: EMIGDIO Piperacillin Sod/Tazobactam Sod (Zosyn) 4.5 gm in 120 mls @ 240 mls/hr IV NOW ONE Stop: 12/17/22 21:36 Last Infusion: 12/18/22 00:47 Dose: 0 mls/hr Documented By: Admin: 12/17/22 22:46 Dose: 240 mls/hr Documented By: DIAMOND Sodium Chloride (Nss 1000ml) 1,000 mls @ 100 mls/hr IV .Q10H BEN Stop: 12/18/22 20:42 Last Admin: 12/18/22 11:47 Dose: Not Given Documented By: Infusion: 12/18/22 11:47 Dose: 0 mls/hr Documented By: Admin: 12/18/22 01:23 Dose: 100 mls/hr Documented By: VIVIENNE Insulin Human Regular 6 units/ (Syringe) 6 mls @ 30 mls/min IV TODAY@0840 ONE Stop: 12/18/22 08:41 Last Admin: 12/18/22 09:10 Dose: 30 mls/min Documented By: BONNIE Co-signed By: YOSELIN Insulin Aspart (Insulin Aspart Per Unit) 7 units SC NOW STA Stop: 12/18/22 01:02 Last Admin: 12/18/22 01:44 Dose: 7 units Documented By: VIVIENNE Co-signed By: RADHA Insulin Glargine (Lantus Per Unit Charge) 40 units SQ ONE ONE Stop: 12/18/22 08:16 Last Admin: 12/18/22 09:26 Dose: 40 units Documented By: BONNIE Co-signed By: KEITH Lidocaine/Epinephrine (Lidocaine 1%/Epinephrine 1:100,000 50 Ml Vial) Confirm Administered Dose 1 ml .ROUTE .STK-MED ONE Stop: 12/17/22 23:13 Last Admin: 12/17/22 23:23 Dose: Not Given Documented By: ES Morphine Sulfate (Morphine Sulfate 2 Mg/Ml Carp) 2 mg IV NOW STA Stop: 12/17/22 23:30 Last Admin: 12/17/22 23:35 Dose: 2 mg Documented By: ES Morphine Sulfate (Morphine Sulfate 2 Mg/Ml Carp) Confirm Administered Dose 2 mg .ROUTE .STK-MED ONE Stop: 12/17/22 23:31 Last Admin: 12/17/22 23:35 Dose: Not Given Documented By: ES Morphine Sulfate (Morphine Sulfate 2 Mg/Ml Carp) 2 mg IV Q3H PRN PRN Reason: Pain (1,2,3,4,5) & Pre PT Stop: 01/01/23 00:42 Last Admin: 12/18/22 09:09 Dose: 2 mg Documented By: Admin: 12/18/22 05:41 Dose: 2 mg Documented By: SMP Imaging Data Radiologist's Impression: Scrotum Ultrasound 12/17/22 16:42 TESTICULAR ULTRASOUND HISTORY: Scrotal lumps. testicle pain/swelling, reports feeling lumps COMPARISON: None. FINDINGS: Right testis: 4.0 x 2.2 x 2.7 cm. There are no intratesticular masses. Normal color flow. No hydrocele. The epididymis is unremarkable. Left testis: 3.5 x 2.1 x 2.4 cm. Small varicocele is noted. There are no intr atesticular masses. Normal color flow. No hydrocele. The epididymis is unremarkable. Miscellaneous: The patient's area of interest within the posterior scrotum and perineum there are 2 complex subcutaneous nodules measuring 20 x 20 x 12 mm and 9 x 7 x 5 mm, respectively. IMPRESSION: 1. Normal bilateral testes. 2. Small left varicocele. 3. Complex subcutaneous nodules within the posterior scrotum and perineum at the patient's area of interest. These are nonspecific but could be due to granulomas or phlegmon/developing abscesses. ACT 112: Negative or not required by law. Electronically signed by: Delgado Wells M.D. 12/17/2022 6:35 PM Discharge Plan Visit Data Chief Complaint: Testicular Pain Stated Complaint: CYST/TUMOR ON TESTICLE ED Provider: Kervin Falk Discharge Problem: Scrotal abscess, Hyperglycemia, Pain in scrotum, Elevated hemoglobin A1c Patient Disposition: Admitted As Inpatient Discharge Instructions Interventions: ED Discharge Assessment Last Done: 12/17/22 23:35
[2022-12-18] MEDS: MoRPHine SULFATE 2 MG/ML CARP IV PRN ×3 (05:41→15:42)
[2022-12-18 06:12] LABS: Hematocrit (blood only) 43.9 % (42.0-52.0); Hemoglobin 15.6 g/dl (14.0-18.0); Mean Corpuscular Hemoglobin 32.6 pg (25.0-34.0); Mean Corpuscular Hgb Conc 35.5 g/dL (32.0-36.0); Mean Corpuscular Volume 91.6 fL (80.0-100.0); Mean Platelet Volume 10.1 fL (9.4-12.4); Platelet Count 134 K/uL (130-400); RDW Coefficient of Variation 11.3 % (11.5-14.5); RDW Standard Deviation 38.2 fL (36.4-46.3); Red Blood Count 4.79 M/uL (4.70-6.10); White Blood Count 8.03 K/ul (4.8-10.8)
[2022-12-18 06:51] LABS: BUN Creatinine Ratio 18.1 (10-20); Calcium 10.1 mg/dl (8.5-10.1); Est GFR (African American) 105.5 ml/min; Potassium 4.3 mmol/L (3.5-5.1)
[2022-12-18 07:35] LABS: Estimated Average Glucose 309 mg/dl; Hemoglobin A1C 12.4 % (4.5-5.6)
--- NOTE | 2022-12-18 07:43 | Hospitalist Progress Note ---
Date of Service December 18, 2022 Assessment & Plan (1) Scrotal abscess: Plan: 67-year-old male with newly diagnosed diabetes presenting with scrotal abscesses status post bedside I&D performed by urology today. Patient is afebrile, hemodynamically stable, nontoxic in appearance. Normal WBC count. He was given 4.5 g of Zosyn prior to the procedure. Urology consulted and following - blood cx and scrotal abscess cx pending Continue Zosyn until cx/sensitivities return then narrow to oral regimen. Will likely need 7-10 days total abx. Wound care as needed Morphine and oxy as needed for pain Colace as needed for constipation (2) Elevated blood sugar: Plan: Patient with elevated blood sugar = 523 on arrival. He has no previous diagnosis of diabetes. Of note, he does not routinely follow-up with primary care physician. He denies polydipsia or polyuria. Suspect new onset diabetes. Blood sugar most likely acutely worsened by infection as well as dietary intakepatient reports he drank quite a bit of apple juice prior to arrival. Blood sugar improved to 332 after IV fluids. Patient does not routinely see a PCP. He lives part-time in [place]. Have placed case management consultation to assist with establishing care with PCP. A1c 12.4 real estate paralegal consulted - pharmacy glycemic consult on board - sugars improved; will likely need insulin rx on discharge and f/u with PCP for outpatient management. Pt can discuss insulin versus 3 diabetic medication regimen for outpatient tx of DM. (3) Aspirin long-term use: Plan: Patient takes quite a bit of aspirin at home. Reports 975 mg daily. No tinnitus reported. Salicylate level <3. Hold aspirin - advised against use of aspirin at home. May use tylenol/NSAIDs for pains Plan DVT ppx: patient is low risk for DVT, encourage ambulation as tolerated FEN/GI: DM2 Code Status: full Dispo: med surg Admission and Anticipated Discharge Date Admission Date: December 17, 2022 Supervising Physician Co-Signing Physician Notes Attending attestation Pt seen and examined in concert with Dr. Tabares. In agreement with the documented findings as noted in the resident documentation with any exceptions or additions as noted here. Pain adequately controlled on present regimen. Open to glycemic education and understanding of the importance of controlling his sugars. On examination, S1/S2 nl RRR no MCG. CTAB. Abd NT/ND BS+ve DMII with hyperglycemia - continue basal/bolus with upadjustment based on glucose monitoring. DM education and reinforce importance of glycemic control in wound healing Scrotal abscess s/p I&D - urology consult - continue Zosyn, follow up cultures, trend CBC, BMP Else see resident documentation as noted. Subjective Pt seen at bedside this morning. Laying comfortable in bed. Testicular pain worse than prior but expected following I&D. Denies headache, chest pain, sob, abd pain, constipation, diarrhea, nausea, vomiting, fever. Review of Systems Review of Systems: All systems reviewed & are unremarkable except as noted in HPI & below Physical Exam Physical Exam: General: NAD, non-toxic in appearance, AO x4 Skin: warm, dry, intact, no rashes or lesions HEENT: NC/AT, EOMI, anicteric sclera, conjunctiva without injection, moist mucus membranes, neck supple, trachea midline, no LAD, no thyromegaly, no JVD Heart: +S1/S2, regular, no m/r/g Lungs: equal air entry bilaterally, no rales/rhonchi/wheezes Abd: +BS, soft, NT/ND, no masses/organomegaly/ascites exam per urology note Ext: 2+ pulses in UE/LE bilaterally, no clubbing/cyanosis or edema Neuro: nonfocal, speech intact, no facial droop Results & Data Results & Data ([facility]) Vital Signs (Past 12 Hours) Vital Signs Temp Pulse Pulse Resp BP BP Pulse Ox 12/18/22 00:58 36.9 C 78 18 147/98 H 95 12/17/22 23:35 68 20 115/68 98 12/17/22 22:09 87 20 145/78 H 95 O2 Del Method 12/18/22 00:58 Room Air 12/17/22 23:35 Room Air 12/17/22 22:09 Room Air Laboratory Results 12/18/22 12/18/22 12/18/22 Range/Units 17:12 12:09 08:13 WBC (4.8-10.8) K/ul RBC (4.70-6.10) M/uL Hgb (14.0-18.0) g/dl Hct (42.0-52.0) % MCV (80.0-100.0) fL MCH (25.0-34.0) pg MCHC (32.0-36.0) g/dL RDW Std Deviation (36.4-46.3) fL RDW Coeff of Elier (11.5-14.5) % Plt Count (130-400) K/uL MPV (9.4-12.4) fL Sodium (136-145) mmol/L Potassium (3.5-5.1) mmol/L Chloride (98-107) mmol/L Carbon Dioxide (21-32) mmol/L Anion Gap (3-11) BUN (6-23) mg/dl Creatinine (0.6-1.4) mg/dl Est Cr Clr Drug Dosing Est GFR ( Amer) ml/min Est GFR (Non-Af Amer) ml/min BUN/Creatinine Ratio (10-20) Glucose (70-99(Fasting)) mg/dl POC Glucose 137 H 219 H 385 H* (70-99) mg/dl Estimat Average Glucose mg/dl Hemoglobin A1c (4.5-5.6) % Lactate (0.4-2.0) mmol/L Calcium (8.5-10.1) mg/dl Total Bilirubin (0.2-1.0) mg/dl AST (13-39) U/L ALT (7-52) U/L Alkaline Phosphatase (34-104) U/L Total Protein (6.0-8.3) gm/dl Albumin (3.4-5.0) gm/dl Globulin (2.5-4.0) gm/dl Albumin/Globulin Ratio (0.9-2) Procalcitonin Salicylates (3.0-30) mg/dl SARS-CoV-2, RNA, NAAT (NEGATIVE) 12/18/22 12/18/22 12/18/22 Range/Units 05:19 05:19 05:19 WBC 8.03 (4.8-10.8) K/ul RBC 4.79 (4.70-6.10) M/uL Hgb 15.6 (14.0-18.0) g/dl Hct 43.9 (42.0-52.0) % MCV 91.6 (80.0-100.0) fL MCH 32.6 (25.0-34.0) pg MCHC 35.5 (32.0-36.0) g/dL RDW Std Deviation 38.2 (36.4-46.3) fL RDW Coeff of Elier 11.3 L (11.5-14.5) % Plt Count 134 (130-400) K/uL MPV 10.1 (9.4-12.4) fL Sodium 138 (136-145) mmol/L Potassium 4.3 (3.5-5.1) mmol/L Chloride 99 (98-107) mmol/L Carbon Dioxide 34 H (21-32) mmol/L Anion Gap 5 (3-11) BUN 15 (6-23) mg/dl Creatinine 0.83 (0.6-1.4) mg/dl Est Cr Clr Drug Dosing 106.0 Est GFR ( Amer) 105.5 ml/min Est GFR (Non-Af Amer) 91.0 ml/min BUN/Creatinine Ratio 18.1 (10-20) Glucose 355 H* (70-99(Fasting)) mg/dl POC Glucose (70-99) mg/dl Estimat Average Glucose mg/dl Hemoglobin A1c (4.5-5.6) % Lactate (0.4-2.0) mmol/L Calcium 10.1 (8.5-10.1) mg/dl Total Bilirubin (0.2-1.0) mg/dl AST (13-39) U/L ALT (7-52) U/L Alkaline Phosphatase (34-104) U/L Total Protein (6.0-8.3) gm/dl Albumin (3.4-5.0) gm/dl Globulin (2.5-4.0) gm/dl Albumin/Globulin Ratio (0.9-2) Procalcitonin Salicylates < 3.0 L (3.0-30) mg/dl SARS-CoV-2, RNA, NAAT (NEGATIVE) 12/18/22 12/18/22 12/17/22 Range/Units 02:58 01:37 22:24 WBC (4.8-10.8) K/ul RBC (4.70-6.10) M/uL Hgb (14.0-18.0) g/dl Hct (42.0-52.0) % MCV (80.0-100.0) fL MCH (25.0-34.0) pg MCHC (32.0-36.0) g/dL RDW Std Deviation (36.4-46.3) fL RDW Coeff of Elier (11.5-14.5) % Plt Count (130-400) K/uL MPV (9.4-12.4) fL Sodium (136-145) mmol/L Potassium (3.5-5.1) mmol/L Chloride (98-107) mmol/L Carbon Dioxide (21-32) mmol/L Anion Gap (3-11) BUN (6-23) mg/dl Creatinine (0.6-1.4) mg/dl Est Cr Clr Drug Dosing Est GFR ( Amer) ml/min Est GFR (Non-Af Amer) ml/min BUN/Creatinine Ratio (10-20) Glucose (70-99(Fasting)) mg/dl POC Glucose 376 H* 353 H* (70-99) mg/dl Estimat Average Glucose mg/dl Hemoglobin A1c (4.5-5.6) % Lactate (0.4-2.0) mmol/L Calcium (8.5-10.1) mg/dl Total Bilirubin (0.2-1.0) mg/dl AST (13-39) U/L ALT (7-52) U/L Alkaline Phosphatase (34-104) U/L Total Protein (6.0-8.3) gm/dl Albumin (3.4-5.0) gm/dl Globulin (2.5-4.0) gm/dl Albumin/Globulin Ratio (0.9-2) Procalcitonin 0.10 Salicylates (3.0-30) mg/dl SARS-CoV-2, RNA, NAAT (NEGATIVE) 12/17/22 12/17/22 12/17/22 Range/Units 22:24 21:33 20:59 WBC (4.8-10.8) K/ul RBC (4.70-6.10) M/uL Hgb (14.0-18.0) g/dl Hct (42.0-52.0) % MCV (80.0-100.0) fL MCH (25.0-34.0) pg MCHC (32.0-36.0) g/dL RDW Std Deviation (36.4-46.3) fL RDW Coeff of Elier (11.5-14.5) % Plt Count (130-400) K/uL MPV (9.4-12.4) fL Sodium (136-145) mmol/L Potassium (3.5-5.1) mmol/L Chloride (98-107) mmol/L Carbon Dioxide (21-32) mmol/L Anion Gap (3-11) BUN (6-23) mg/dl Creatinine (0.6-1.4) mg/dl Est Cr Clr Drug Dosing Est GFR ( Amer) ml/min Est GFR (Non-Af Amer) ml/min BUN/Creatinine Ratio (10-20) Glucose (70-99(Fasting)) mg/dl POC Glucose 332 H* (70-99) mg/dl Estimat Average Glucose mg/dl Hemoglobin A1c (4.5-5.6) % Lactate 1.1 (0.4-2.0) mmol/L Calcium (8.5-10.1) mg/dl Total Bilirubin (0.2-1.0) mg/dl AST (13-39) U/L ALT (7-52) U/L Alkaline Phosphatase (34-104) U/L Total Protein (6.0-8.3) gm/dl Albumin (3.4-5.0) gm/dl Globulin (2.5-4.0) gm/dl Albumin/Globulin Ratio (0.9-2) Procalcitonin Salicylates (3.0-30) mg/dl SARS-CoV-2, RNA, NAAT NEGATIVE (NEGATIVE) 12/17/22 12/17/22 12/17/22 Range/Units 17:37 17:37 17:37 WBC (4.8-10.8) K/ul RBC (4.70-6.10) M/uL Hgb (14.0-18.0) g/dl Hct (42.0-52.0) % MCV (80.0-100.0) fL MCH (25.0-34.0) pg MCHC (32.0-36.0) g/dL RDW Std Deviation (36.4-46.3) fL RDW Coeff of Elier (11.5-14.5) % Plt Count (130-400) K/uL MPV (9.4-12.4) fL Sodium 130 L (136-145) mmol/L Potassium 4.7 (3.5-5.1) mmol/L Chloride 94 L (98-107) mmol/L Carbon Dioxide 30 (21-32) mmol/L Anion Gap 6 (3-11) BUN 13 (6-23) mg/dl Creatinine 0.86 (0.6-1.4) mg/dl Est Cr Clr Drug Dosing Not Reportable Est GFR ( Amer) 104.0 ml/min Est GFR (Non-Af Amer) 89.7 ml/min BUN/Creatinine Ratio 15.1 (10-20) Glucose 523 H* (70-99(Fasting)) mg/dl POC Glucose (70-99) mg/dl Estimat Average Glucose 309 mg/dl Hemoglobin A1c 12.4 H (4.5-5.6) % Lactate (0.4-2.0) mmol/L Calcium 10.6 H (8.5-10.1) mg/dl Total Bilirubin 0.7 (0.2-1.0) mg/dl AST 35 (13-39) U/L ALT 55 H (7-52) U/L Alkaline Phosphatase 67 (34-104) U/L Total Protein 7.4 (6.0-8.3) gm/dl Albumin 4.7 (3.4-5.0) gm/dl Globulin 2.7 (2.5-4.0) gm/dl Albumin/Globulin Ratio 1.7 (0.9-2) Procalcitonin Cancelled Salicylates (3.0-30) mg/dl SARS-CoV-2, RNA, NAAT (NEGATIVE) Resident Activity Tracking Resident Involvement: Resident Care Provided Care Provided: Adult [facility] Medicine
[2022-12-18] MEDS ORDERED: PHARMACY GLYCEMIC MGMT CONSULT PRN (07:47)
--- NOTE | 2022-12-18 08:04 | Urology Progress Note ---
Date of Service December 18, 2022 Assessment & Plan (1) Scrotal abscess: Plan 67-year-old male with newly diagnosed diabetes presenting with scrotal abscesses status post bedside I&D. - Afebrile and hemodynamically stable. - Labs reviewed - Wbc 8.03, Creatinine 0.83, A1C 12.4. - Scrotal wound cultures pending. Blood cultures pending. On IV Zosyn. - Follow cultures and tailor as culture data becomes available. Will likely need 7-10 days of oral antibiotic on discharge. - Scrotal dressing intact. Will likely need to have packing changed every day or every other day for the next 1-2 weeks. Wound care consulted. - Patient is not from the area and he is likely leaving in the next 10 to 14 days. 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 - Urology will follow. Admission and Anticipated Discharge Date Admission Date: December 17, 2022 Subjective Pt examined at bedside this AM. Awake, resting in bed on arrival. No acute distress. Still with pain/tenderness to scrotum. Currently applying ice to area. Managing with IV pain medication.Denies fevers or chills. No nausea or vomiting. Voiding without issue. No hematuria or dysuria. No abdominal or suprapubic pain. States he is was to leave for [place] in approx 10 days. Review of Systems Constitutional: as per Subjective / HPI Gastrointestinal: as per Subjective / HPI Genitourinary: + as per Subjective / HPI Physical Exam Constitutional: no acute distress Respiratory: no respiratory distress and no labored breathing Gastrointestinal (Abdomen): Percussion/Palpation: abdomen soft; abdomen nonten amarilys Neurologic: awake Psychiatric: Orientation: alert, oriented x 3 and cooperative Genitourinary: Iodoform packing intact to right hemiscrotum and posterior portion of the left hemiscrotum. Tender to palpation. No areas of crepitus or concern for recurrence of abscess. Induration and erythema is consistent with abscess. No crepitus. Results & Data ([facility]) Vital Signs (Past 12 Hours) Vital Signs Temp Pulse Pulse Resp BP BP Pulse Ox 12/18/22 00:58 36.9 C 78 18 147/98 H 95 12/17/22 23:35 68 20 115/68 98 12/17/22 22:09 87 20 145/78 H 95 O2 Del Method 12/18/22 00:58 Room Air 12/17/22 23:35 Room Air 12/17/22 22:09 Room Air PG Care Time/CCT Total # of Minutes Spent Total Time Spent with Patient: Total time spent is greater than 50% in coordination of care (as documented) at patient's floor/unit and/or counseling patient: Coding Level of Care Code 07170 SUB INP/OBS CARE 2/35MIN Diagnoses Scrotal abscess N49.2
[2022-12-18] MEDS ORDERED: LANTUS PER UNIT CHARGE SQ ONE (08:15)
--- NOTE | 2022-12-18 08:16 | Pharmacy Report ---
Pharmacy Glycemic Short Note 2 - Date of Service December 18, 2022 - Glycemic Short BSG Results (Last 24 hours): 12/17/22 12/17/22 12/18/22 17:37 20:59 01:37 Glucose 523 H* POC Glucose 332 H* 353 H* 12/18/22 12/18/22 02:58 05:19 Glucose 355 H* POC Glucose 376 H* OUTPATIENT ANTIDIABETIC REGIMEN: * n/a * A1c 12.4% ASSESSMENT: * 67 year old admitted with scrotal abscess, now s/p I&D - currently receiving zosyn. BSGs in the 500s on arrival. Per notes patient drinking sugary drink/apple juice prior to arrival. A1c returned at 12.4%. No history of diabetes noted. * BSGs in the 300s this morning, received 7 units of correctional insulin overnight - however BSGs remain unchanged. * Will start insulin regimen based upon stress 2/3 dosing for now. Patient ordered diet this morning. Will give Lantus 40 units x 1 now and start novolog PLAN FOR INPATIENT GLYCEMIC CONTROL: * Hold outpatient oral diabetes medications * Basal insulin * Lantus 40 units x 1 * Will assess 12/19 AM to determine further dosing * Bolus insulin * NovoLog per scale ACHS or Q6hrs while NPO * Goal Range: Low 110 mg/dL - High 140 mg/dL * Correction Factor: 15 mg/dL/unit * Nutritional / Prandial insulin per carb ratio of 1 unit per 6 grams CHO consumed
[2022-12-18] MEDS ORDERED: INSULIN HUMAN REGULAR PER UNIT 6 UNITS in SYRINGE 5.94 ML IV ONE (08:40)
--- NOTE | 2022-12-18 08:54 | CT Scan Report ---
CT pelvis wo con CLINICAL HISTORY: scrotal abscess COMPARISON STUDY: Scrotal ultrasound December 17, 2022. TECHNIQUE: Axial images of the pelvis were obtained without IV contrast. Sagittal and coronal reconst ructions were viewed. Automated exposure control was utilized for the study. A dose lowering techniq ue was utilized adhering to the principles of ALARA. FINDINGS: The caliber of visualized small and large bowel are normal. There is no pelvic lymphadenopa thy. Bilateral inguinal hernias are present. A portion of the sigmoid colon slightly extends into the left inguinal hernia. There is no soft tissue gas. Scrotal edema is noted. Suspected 2 cm fluid pako ection of the right posterior hemiscrotum likely corresponds to the larger abnormality on ultrasound of December 17, 2022. This is suboptimally assessed on this unenhanced examination. No additional flu id collections are identified. No perirectal or perianal abscess. IMPRESSION: Scrotal edema with a suspected 2 cm complex fluid collection of the posterior right kaila scrotum which likely corresponds to the sonographic abnormality. This is suboptimally assessed on thi s unenhanced exam but may reflect a scrotal abscess. ACT 112: Negative or not required by law. Electronically signed by: Tani Mendoza M.D. 12/18/2022 8:52 AM
[2022-12-18] MEDS ORDERED: LANTUS PER UNIT CHARGE SQ SCH ×2 (09:00→21:00)
[2022-12-18] MEDS: INSULIN ASPART PER UNIT SC SCH ×4 (09:58→20:37)
[2022-12-18] MEDS: oxyCODONE HCL IR 5 MG TAB (IMMEDIATE RELEASE) PO PRN ×2 (12:55→18:19)
[2022-12-18] MEDS: ACETAMINOPHEN 325 MG TAB PO SCH ×2 (13:02→18:04)
[2022-12-18] MEDS: MELATONIN 3 MG TAB PO PRN (20:37)
[2022-12-19] MEDS: INSULIN ASPART PER UNIT SC SCH ×6 (00:11→21:56)
[2022-12-19] MEDS: ACETAMINOPHEN 325 MG TAB PO SCH ×5 (00:12→23:52)
[2022-12-19] MEDS: oxyCODONE HCL IR 5 MG TAB (IMMEDIATE RELEASE) PO PRN ×4 (00:13→20:03)
[2022-12-19] MEDS: MoRPHine SULFATE 2 MG/ML CARP IV PRN ×5 (02:49→20:59)
[2022-12-19] MEDS: PIPERACILLIN/TAZOBACTAM 3.375 GM in DEXTROSE 5% 100 ML IV SCH ×3 (04:28→20:03)
--- NOTE | 2022-12-19 07:21 | Hospitalist Progress Note ---
Date of Service December 19, 2022 Assessment & Plan (1) Scrotal abscess: Plan: 67-year-old male with newly diagnosed diabetes presenting with scrotal abscesses status post bedside I&D performed by urology today. Patient is afebrile, hemodynamically stable, nontoxic in appearance. Normal WBC count. He was given 4.5 g of Zosyn prior to the procedure. Urology consulted and following - blood cx and scrotal abscess cx pending Continue Zosyn until cx/sensitivities return then narrow to oral regimen. Will likely need 7-10 days total abx. Wound care as needed Morphine and oxy as needed for pain Colace as needed for constipation (2) Elevated blood sugar: Plan: Patient with elevated blood sugar = 523 on arrival. He has no previous diagnosis of diabetes. Of note, he does not routinely follow-up with primary care physician. He denies polydipsia or polyuria. Suspect new onset diabetes. Blood sugar most likely acutely worsened by infection as well as dietary intakepatient reports he drank quite a bit of apple juice prior to arrival. Blood sugar improved to 332 after IV fluids. Patient does not routinely see a PCP. He lives part-time in [place]. Have placed case management consultation to assist with establishing care with PCP. A1c 12.4 clinical unit educator consulted - pharmacy glycemic consult on board - sugars improved; will likely need insulin rx on discharge and f/u with PCP for outpatient management. Pt can discuss insulin versus 3 diabetic medication regimen for outpatient tx of DM. (3) Aspirin long-term use: Plan: Patient takes quite a bit of aspirin at home. Reports 975 mg daily. No tinnitus reported. Salicylate level <3. Hold aspirin - advised against use of aspirin at home. May use tylenol/NSAIDs for pains Plan DVT ppx: patient is low risk for DVT, encourage ambulation as tolerated FEN/GI: DM2 Code Status: full Dispo: med surg Admission and Anticipated Discharge Date Admission Date: December 17, 2022 Supervising Physician Co-Signing Physician Notes Attending attestation Pt seen and examined in concert with Dr. Tabares. In agreement with the documented findings as noted in the resident documentation with any exceptions or additions as noted here. Pain adequately controlled on present regimen, improving gradually. Tolerating packing change. Working on glycemic control. On examination, S1/S2 nl RRR no MCG. CTAB. Abd NT/ND BS+ve DMII with hyperglycemia - continue basal/bolus with adjustment based on glucose monitoring. DM education and reinforce importance of glycemic control in wound healing Scrotal abscess s/p I&D - urology consult - continue Zosyn, cultures with pinpoint growth - continue to follow. trend CBC, BMP Else see resident documentation as noted. Subjective Pt seen at bedside this morning. Laying comfortable in bed. Scrotum still hurts but pain controlled. Denies headache, chest pain, sob, abd pain, constipation, diarrhea, nausea, vomiting, fever. Review of Systems Review of Systems: All systems reviewed & are unremarkable except as noted in HPI & below Physical Exam Physical Exam: General: NAD, non-toxic in appearance, AOx3 Skin: warm, dry, intact, no rashes or lesions HEENT: NC/AT, EOMI, anicteric sclera, conjunctiva without injection, moist mucus membranes, neck supple, trachea midline, no LAD, no thyromegaly, no JVD Heart: +S1/S2, regular, no m/r/g Lungs: equal air entry bilaterally, no rales/rhonchi/wheezes Abd: +BS, soft, NT/ND, no masses/organomegaly/ascites exam per urology note Ext: 2+ pulses in UE/LE bilaterally, no clubbing/cyanosis or edema Neuro: nonfocal, speech intact, no facial droop Results & Data Results & Data ([facility]) Vital Signs (Past 12 Hours) Vital Signs Temp Pulse Resp BP Pulse Ox O2 Del Method 12/18/22 20:32 37.6 C H 93 H 18 149/77 H 96 Room Air Laboratory Results 12/19/22 12/19/22 12/19/22 Range/Units 07:40 07:40 04:02 WBC 9.35 (4.8-10.8) K/ul RBC 4.51 L (4.70-6.10) M/uL Hgb 14.7 (14.0-18.0) g/dl Hct 41.5 L (42.0-52.0) % MCV 92.0 (80.0-100.0) fL MCH 32.6 (25.0-34.0) pg MCHC 35.4 (32.0-36.0) g/dL RDW Std Deviation 38.4 (36.4-46.3) fL RDW Coeff of Elier 11.2 L (11.5-14.5) % Plt Count 117 L (130-400) K/uL MPV 9.7 (9.4-12.4) fL Immature Gran % (Auto) 0.3 % Neut % (Auto) 61.8 % Lymph % (Auto) 23.9 % Hendry % (Auto) 10.2 % Eos % (Auto) 3.4 % Baso % (Auto) 0.4 % Neut # (Auto) 5.78 (1.40-6.50) K/uL Lymph # (Auto) 2.23 (1.2-3.4) K/uL Hendry # (Auto) 0.95 H (0.11-0.59) K/uL Eos # (Auto) 0.32 (0-0.50) K/uL Baso # (Auto) 0.04 (0-0.2) K/uL Immature Gran # (Auto) 0.03 (0.01-0.20) K/uL Sodium 138 (136-145) mmol/L Potassium 4.2 (3.5-5.1) mmol/L Chloride 103 (98-107) mmol/L Carbon Dioxide 32 (21-32) mmol/L Anion Gap 3 (3-11) BUN 13 (6-23) mg/dl Creatinine 0.84 (0.6-1.4) mg/dl Est Cr Clr Drug Dosing 104.8 ml/min Est GFR ( Amer) 105.0 ml/min Est GFR (Non-Af Amer) 90.6 ml/min BUN/Creatinine Ratio 15.5 (10-20) Glucose 164 H (70-99(Fasting)) mg/dl POC Glucose 161 H (70-99) mg/dl Calcium 9.5 (8.5-10.1) mg/dl 12/18/22 12/18/22 12/18/22 Range/Units 23:59 20:23 17:12 WBC (4.8-10.8) K/ul RBC (4.70-6.10) M/uL Hgb (14.0-18.0) g/dl Hct (42.0-52.0) % MCV (80.0-100.0) fL MCH (25.0-34.0) pg MCHC (32.0-36.0) g/dL RDW Std Deviation (36.4-46.3) fL RDW Coeff of Elier (11.5-14.5) % Plt Count (130-400) K/uL MPV (9.4-12.4) fL Immature Gran % (Auto) % Neut % (Auto) % Lymph % (Auto) % Hendry % (Auto) % Eos % (Auto) % Baso % (Auto) % Neut # (Auto) (1.40-6.50) K/uL Lymph # (Auto) (1.2-3.4) K/uL Hendry # (Auto) (0.11-0.59) K/uL Eos # (Auto) (0-0.50) K/uL Baso # (Auto) (0-0.2) K/uL Immature Gran # (Auto) (0.01-0.20) K/uL Sodium (136-145) mmol/L Potassium (3.5-5.1) mmol/L Chloride (98-107) mmol/L Carbon Dioxide (21-32) mmol/L Anion Gap (3-11) BUN (6-23) mg/dl Creatinine (0.6-1.4) mg/dl Est Cr Clr Drug Dosing ml/min Est GFR ( Amer) ml/min Est GFR (Non-Af Amer) ml/min BUN/Creatinine Ratio (10-20) Glucose (70-99(Fasting)) mg/dl POC Glucose 167 H 225 H 137 H (70-99) mg/dl Calcium (8.5-10.1) mg/dl Resident Activity Tracking Resident Involvement: Resident Care Provided Care Provided: Adult [facility] Medicine
[2022-12-19 08:06] LABS: Basophils # (auto) 0.04 K/uL (0-0.2); Basophils % (auto) 0.4 %; Eosinophils # (auto) 0.32 K/uL (0-0.50); Eosinophils % (auto) 3.4 %; Hematocrit (blood only) 41.5 % (42.0-52.0); Hemoglobin 14.7 g/dl (14.0-18.0); Immature Granulocytes # (auto) 0.03 K/uL (0.01-0.20); Immature Granulocytes % (auto) 0.3 %; Lymphocytes # (auto) 2.23 K/uL (1.2-3.4); Lymphocytes % (auto) 23.9 %; Mean Corpuscular Hemoglobin 32.6 pg (25.0-34.0); Mean Corpuscular Hgb Conc 35.4 g/dL (32.0-36.0); Mean Platelet Volume 9.7 fL (9.4-12.4); Monocytes # (auto) 0.95 K/uL (0.11-0.59); Monocytes % (auto) 10.2 %; Neutrophils # (auto) 5.78 K/uL (1.40-6.50); Neutrophils % (auto) 61.8 %; Platelet Count 117 K/uL (130-400); RDW Coefficient of Variation 11.2 % (11.5-14.5); RDW Standard Deviation 38.4 fL (36.4-46.3); Red Blood Count 4.51 M/uL (4.70-6.10); White Blood Count 9.35 K/ul (4.8-10.8)
[2022-12-19 08:24] LABS: BUN Creatinine Ratio 15.5 (10-20); Calcium 9.5 mg/dl (8.5-10.1); Creatinine Clr Calc Pharmacy 104.8 ml/min; Est GFR (Non-African American) 90.6 ml/min; Potassium 4.2 mmol/L (3.5-5.1)
--- NOTE | 2022-12-19 08:54 | Urology Progress Note ---
Date of Service December 19, 2022 Assessment & Plan (1) Scrotal abscess: Plan 67-year-old male with newly diagnosed diabetes presenting with scrotal abscesses status post bedside I&D on 12/17. - Afebrile and hemodynamically stable. - Labs reviewed - Wbc 9.35, Hemoglobin stable, Creatinine 0.84. - Scrotal wound cultures pending. Blood cultures pending. On IV Zosyn. - Follow cultures and tailor as culture data becomes available. Will likely need 7-10 days of oral antibiotic on discharge. - Scrotal packing was removed and replaced by wound care nurse this morning. Continue daily packing/dressing changes. - Case management working on for assistance with scrotal packing/dressing changes on discharge. - Patient is not from the area and he is likely leaving in the next 10 to 14 days for [place]. Will arrange an outpatient follow-up in our office prior to this. - Urology will follow. Admission and Anticipated Discharge Date Admission Date: December 17, 2022 Subjective Patient seen and examined at bedside this AM. Awake, resting in bed on arrival. No acute distress. Still with scrotal/testicular discomfort, managing with IV pain medication. Scrotal packing intact. Minimal amount of serosanguineous drainage noted on gauze. Denies fevers or chills. Tmax 37.6 overnight. Tolerating diet. No n/v. Voiding without issue. No hematuria or dysuria. Ambulating without issue. Review of Systems Constitutional: as per Subjective / HPI Gastrointestinal: as per Subjective / HPI Genitourinary: + as per Subjective / HPI Physical Exam Constitutional: no acute distress Respiratory: no respiratory distress and no labored breathing Gastrointestinal (Abdomen): Percussion/Palpation: abdomen soft; abdomen nontender Neurologic: awake Psychiatric: Orientation: alert, oriented x 3 and cooperative Genitourinary: Iodoform packing intact to right hemiscrotum and posterior portion of the left hemiscrotum.Covered with gauze dressing. Minimal serosanguineous drainage noted. Tender with palpation. Minimal erythema and edema noted surrounding I&D sites. No areas of crepitus or concern for recurrence of abscess. Results & Data ([facility]) Vital Signs (Past 12 Hours) Vital Signs Temp Pulse Resp BP Pulse Ox O2 Del Method 12/19/22 07:20 36.7 C 70 14 128/75 97 Room Air PG Care Time/CCT Total # of Minutes Spent Total Time Spent with Patient: Total time spent is greater than 50% in coordination of care (as documented) at patient's floor/unit and/or counseling patient: Coding Level of Care Code 31736 SUB INP/OBS CARE 2/35MIN Diagnoses Scrotal abscess N49.2
[2022-12-19] MEDS: LANTUS PER UNIT CHARGE SQ SCH (10:07)
[2022-12-19] MEDS ORDERED: hydrOXYzine HCl 25 MG TAB PO STA (11:12)
--- NOTE | 2022-12-19 13:05 | Pharmacy Report ---
Pharmacy Glycemic Short Note 2 - Date of Service December 19, 2022 - Glycemic Short BSG Results (Last 24 hours): 12/18/22 12/18/22 12/18/22 17:12 20:23 23:59 Glucose POC Glucose 137 H 225 H 167 H 12/19/22 12/19/22 04:02 07:40 Glucose 164 H POC Glucose 161 H OUTPATIENT ANTIDIABETIC REGIMEN: * n/a * A1c 12.4% ASSESSMENT: 12/19 * Patient received 115 units of insulin yesterday, 50 basal, 65 bolus, with correctional insulin overnight. * Increase basal at this time, continue CF/CR * Likely going home on once daily basal insulin + Metformin 12/18 * 67 year old admitted with scrotal abscess, now s/p I&D - currently receiving zosyn. BSGs in the 500s on arrival. Per notes patient drinking sugary drink/apple juice prior to arrival. A1c returned at 12.4%. No history of diabetes noted. * BSGs in the 300s this morning, received 7 units of correctional insulin overnight - however BSGs remain unchanged. * Will start insulin regimen based upon stress 2/3 dosing for now. Patient ordered diet this morning. Will give Lantus 40 units x 1 now and start novolog PLAN FOR INPATIENT GLYCEMIC CONTROL: * Hold outpatient oral diabetes medications * Basal insulin * Lantus 60 units SQ AM * Bolus insulin * NovoLog per scale ACHS or Q6hrs while NPO * Goal Range: Low 110 mg/dL - High 140 mg/dL * Correction Factor: 15 mg/dL/unit * Nutritional / Prandial insulin per carb ratio of 1 unit per 5 grams CHO consumed
[2022-12-19] MEDS: MELATONIN 3 MG TAB PO PRN (21:57)
[2022-12-19] MEDS ORDERED: hydrOXYzine HCl 10 MG TAB PO ONE (23:44)
[2022-12-19] MEDS ORDERED: hydrOXYzine HCl 25 MG TAB PO ONE (23:45)
[2022-12-20] MEDS: PIPERACILLIN/TAZOBACTAM 3.375 GM in DEXTROSE 5% 100 ML IV SCH ×2 (04:16→11:28)
[2022-12-20] MEDS: ACETAMINOPHEN 325 MG TAB PO SCH ×2 (06:14→11:28)
[2022-12-20] MEDS: INSULIN ASPART PER UNIT SC SCH ×2 (09:05→12:57)
[2022-12-20] MEDS: LANTUS PER UNIT CHARGE SQ SCH (09:06)
[2022-12-20] MEDS: oxyCODONE HCL IR 5 MG TAB (IMMEDIATE RELEASE) PO PRN (09:13)
--- NOTE | 2022-12-20 10:17 | Urology Progress Note ---
Date of Service December 20, 2022 Assessment & Plan (1) Scrotal abscess: Plan 67-year-old male with newly diagnosed diabetes presenting with scrotal abscesses status post bedside I&D on 12/17. - Afebrile and hemodynamically stable. - Labs reviewed 12/19- Wbc 9.35, Hemoglobin stable, Creatinine 0.84. - Scrotal wound cultures prelim gram positive bacilli, Blood cultures NGTD. On IV Zosyn. Follow culture. - Will need 7-10 days of oral antibiotic, likely Bactrim, on discharge. - Scrotal packing exchanged yesterday by wound care nurse. Continue with every other day packing/dressing changes. - Patient is scheduled for follow-up with the wound care center tomorrow 12/21 at 9AM for packing/dressing change. - Plan to follow-up outpatient with urology on 12/26/22 as scheduled. - Urology will sign-off. Please contact us with any further questions, concerns, or changes in patient status. Admission and Anticipated Discharge Date Admission Date: December 17, 2022 Subjective Patient seen and examined at bedside this AM. Awake, resting in bed on arrival. No acute distress. Denies f/c/n/v. Still with scrotal/testicular pain, but improved from yesterday. Eager to go home today. Review of Systems Constitutional: as per Subjective / HPI Gastrointestinal: as per Subjective / HPI Genitourinary: + as per Subjective / HPI Physical Exam Constitutional: no acute distress Respiratory: no respiratory distress and no labored breathing Neurologic: awake Psychiatric: Orientation: alert, oriented x 3 and cooperative Genitourinary: Iodoform packing intact to right hemiscrotum and posterior portion of the left hemiscrotum.Covered with gauze dressing. Minimal serosanguineous drainage noted. Mild tenderness with palpation. Minimal erythema and edema noted surrounding I&D sites, improved from yesterday. No areas of crepitus or concern for recurrence of abscess. Results & Data ([facility]) Vital Signs (Past 12 Hours) Vital Signs Temp Pulse Pulse Resp BP Pulse Ox O2 Del Method 12/20/22 08:01 36.8 C 65 17 120/70 96 Room Air 12/19/22 22:19 37.1 C 82 18 159/74 H 96 Room Air PG Care Time/CCT Total # of Minutes Spent Total Time Spent with Patient: Total time spent is greater than 50% in coordination of care (as documented) at patient's floor/unit and/or counseling patient: Coding Level of Care Code 82341 SUB INP/OBS CARE 2/35MIN Diagnoses Scrotal abscess N49.2
--- NOTE | 2022-12-20 15:17 | Discharge Summary ---
Date of Service December 20, 2022 Admission HPI Per Admitting Provider Dion Pedraza is a 67yo male presenting with scrotal swelling and tenderness. He noted progressive symptoms ongoing for the last 4-5 days. He first noted a small swollen area about the "size of a regular M&M" which then progressed to the "size of a peanut M&M" then "a small mendez tomato". He now notes 3 areas of swelling/tenderness. His swelling and tenderness worsened over the last two days. He feels tenderness between his testicles. He denies fever, chills, nausea, vomiting, abdominal pain. No complaint of chest pain, palpitations, SOB. No additional complaints at this time. In the ER he is afebrile, hypertensive. Found to have elevated blood sugar of 523. Patient with no formal diagnosis of diabetes. He reports drinking a quart of apple juice prior to arrival. Patient had bilateral incision and drainage performed by urology at the bedside while in the ER. No signs of necrotic material or debris. ER Course: Morphine 2 mg IV Zosyn 4.5 g IV Tylenol 1 g IV Normal saline x1 L Principal Diagnosis Scrotal Abscess, DM2 Discharge Exam General: NAD, non-toxic in appearance, AOx3 Skin: warm, dry, intact, no rashes or lesions HEENT: NC/AT, EOMI, anicteric sclera, conjunctiva without injection, moist mucus membranes, neck supple, trachea midline, no LAD, no thyromegaly, no JVD Heart: +S1/S2, regular, no m/r/g Lungs: equal air entry bilaterally, no rales/rhonchi/wheezes Abd: +BS, soft, NT/ND, no masses/organomegaly/ascites exam per urology note Ext: 2+ pulses in UE/LE bilaterally, no clubbing/cyanosis or edema Neuro: nonfocal, speech intact, no facial droop Discharge Data Allergies Allergy/AdvReac Type Severity Reaction Status Date / Time No Known Allergies Allergy Verified 12/17/22 21:15 Consultations 12/17/22 21:42 ED Decision to Admit Stat 12/18/22 00:43 Consult Urology Routine Ordered Studies Laboratory Results WBC 9.35 K/ul (4.8-10.8) 12/19/22 07:40 RBC 4.51 M/uL (4.70-6.10) L 12/19/22 07:40 Hgb 14.7 g/dl (14.0-18.0) 12/19/22 07:40 Hct 41.5 % (42.0-52.0) L 12/19/22 07:40 MCV 92.0 fL (80.0-100.0) 12/19/22 07:40 MCH 32.6 pg (25.0-34.0) 12/19/22 07:40 MCHC 35.4 g/dL (32.0-36.0) 12/19/22 07:40 RDW Std Deviation 38.4 fL (36.4-46.3) 12/19/22 07:40 RDW Coeff of Elier 11.2 % (11.5-14.5) L 12/19/22 07:40 Plt Count 117 K/uL (130-400) L 12/19/22 07:40 MPV 9.7 fL (9.4-12.4) 12/19/22 07:40 Immature Gran % (Auto) 0.3 % 12/19/22 07:40 Neut % (Auto) 61.8 % 12/19/22 07:40 Lymph % (Auto) 23.9 % 12/19/22 07:40 Gray % (Auto) 10.2 % 12/19/22 07:40 Eos % (Auto) 3.4 % 12/19/22 07:40 Baso % (Auto) 0.4 % 12/19/22 07:40 Neut # (Auto) 5.78 K/uL (1.40-6.50) 12/19/22 07:40 Lymph # (Auto) 2.23 K/uL (1.2-3.4) 12/19/22 07:40 Gray # (Auto) 0.95 K/uL (0.11-0.59) H 12/19/22 07:40 Eos # (Auto) 0.32 K/uL (0-0.50) 12/19/22 07:40 Baso # (Auto) 0.04 K/uL (0-0.2) 12/19/22 07:40 Immature Gran # (Auto) 0.03 K/uL (0.01-0.20) 12/19/22 07:40 Sodium 138 mmol/L (136-145) 12/19/22 07:40 Potassium 4.2 mmol/L (3.5-5.1) 12/19/22 07:40 Chloride 103 mmol/L (98-107) 12/19/22 07:40 Carbon Dioxide 32 mmol/L (21-32) 12/19/22 07:40 Anion Gap 3 (3-11) 12/19/22 07:40 BUN 13 mg/dl (6-23) 12/19/22 07:40 Creatinine 0.84 mg/dl (0.6-1.4) 12/19/22 07:40 Est Cr Clr Drug Dosing 104.8 ml/min 12/19/22 07:40 Est GFR ( Amer) 105.0 ml/min 12/19/22 07:40 Est GFR (Non-Af Amer) 90.6 ml/min 12/19/22 07:40 BUN/Creatinine Ratio 15.5 (10-20) 12/19/22 07:40 Glucose 164 mg/dl (70-99(Fasting)) H 12/19/22 07:40 POC Glucose 170 mg/dl (70-99) H 12/20/22 12:00 Estimat Average Glucose 309 mg/dl 12/17/22 17:37 Hemoglobin A1c 12.4 % (4.5-5.6) H 12/17/22 17:37 Lactate 1.1 mmol/L (0.4-2.0) 12/17/22 22:24 Calcium 9.5 mg/dl (8.5-10.1) 12/19/22 07:40 Total Bilirubin 0.7 mg/dl (0.2-1.0) 12/17/22 17:37 AST 35 U/L (13-39) 12/17/22 17:37 ALT 55 U/L (7-52) H 12/17/22 17:37 Alkaline Phosphatase 67 U/L (34-104) 12/17/22 17:37 Total Protein 7.4 gm/dl (6.0-8.3) 12/17/22 17:37 Albumin 4.7 gm/dl (3.4-5.0) 12/17/22 17:37 Globulin 2.7 gm/dl (2.5-4.0) 02/20/23 17:37 Albumin/Globulin Ratio 1.7 (0.9-2) 12/17/22 17:37 Procalcitonin 0.10 ng/ml (0-0.5) 12/17/22 22:24 Salicylates < 3.0 mg/dl (3.0-30) L 12/18/22 05:19 SARS-CoV-2, RNA, NAAT NEGATIVE (NEGATIVE) 12/17/22 21:33 Impressions Scrotum Ultrasound 12/17/22 16:42 TESTICULAR ULTRASOUND HISTORY: Scrotal lumps. testicle pain/swelling, reports feeling lumps COMPARISON: None. FINDINGS: Right testis: 4.0 x 2.2 x 2.7 cm. There are no intratesticular masses. Normal color flow. No hydrocele. The epididymis is unremarkable. Left testis: 3.5 x 2.1 x 2.4 cm. Small varicocele is noted. There are no intratesticular masses. Normal color flow. No hydrocele. The epididymis is unremarkable. Miscellaneous: The patient's area of interest within the posterior scrotum and perineum there are 2 complex subcutaneous nodules measuring 20 x 20 x 12 mm and 9 x 7 x 5 mm, respectively. IMPRESSION: 1. Normal bilateral testes. 2. Small left varicocele. 3. Complex subcutaneous nodules within the posterior scrotum and perineum at the patient's area of interest. These are nonspecific but could be due to granulomas or phlegmon/developing abscesses. ACT 112: Negative or not required by law. Electronically signed by: Delgado Wells M.D. 12/17/2022 6:[address] 12/17/22 21:31 CT pelvis wo con CLINICAL HISTORY: scrotal abscess COMPARISON STUDY: Scrotal ultrasound December 17, 2022. TECHNIQUE: Axial images of the pelvis were obtained without IV contrast. Sagittal and coronal reconstructions were viewed. Automated exposure control was utilized for the study. A dose lowering technique was utilized adhering to the principles of ALARA. FINDINGS: The caliber of visualized small and large bowel are normal. There is no pelvic lymphadenopathy. Bilateral inguinal hernias are present. A portion of the sigmoid colon slightly extends into the left inguinal hernia. There is no soft tissue gas. Scrotal edema is noted. Suspected 2 cm fluid collection of the right posterior hemiscrotum likely corresponds to the larger abnormality on ultrasound of December 17, 2022. This is suboptimally assessed on this unenhanced examination. No additional fluid collections are identified. No perirectal or perianal abscess. IMPRESSION: Scrotal edema with a suspected 2 cm complex fluid collection of the posterior right hemiscrotum which likely corresponds to the sonographic abnormality. This is suboptimally assessed on this unenhanced exam but may reflect a scrotal abscess. ACT 112: Negative or not required by law. Electronically signed by: Tani Mendoza M.D. 12/18/2022 8:52 AM Diabetes Follow up Diabetes Follow-up Needed for HgbA1c >9% Hospital Course (1) Scrotal abscess: 67-year-old male with newly diagnosed diabetes presenting with scrotal abscesses status post bedside I&D performed by urology today. Patient is afebrile, hemodynamically stable, nontoxic in appearance. Normal WBC count. He was given 4.5 g of Zosyn prior to the procedure. Urology consulted and following - blood cx neg - scrotal wound cx growing gram pos bacilli Zosyn transitioned to bactrim. Will continue outpatient (~10 days total abx coverage) Wound care as needed. Pt will cont. to follow for dressing changes in outpatient setting. Continue with pain control tylenol/ibuprofen (2) Diabetes type 2, uncontrolled: Patient with elevated blood sugar = 523 on arrival. He has no previous diagnosis of diabetes. Of note, he does not routinely follow-up with primary care physician. He denies polydipsia or polyuria. Suspect new onset diabetes. Blood sugar most likely acutely worsened by infection as well as dietary intakepatient reports he drank quite a bit of apple juice prior to arrival. Blood sugar improved to 332 after IV fluids. Patient does not routinely see a PCP. He lives part-time in [place]. A1c 12.4 hematology nurse educator consulted - started on lantus 60units qam + sliding scale which he will continue on discharge. -Goal BSG Range: Low 110 mg/dL, High 140 mg/dL -Correction Factor: 12 mg/dL/unit -Carbohydrate ratio = 4 g/unit - f/u with PCP for outpatient management. Pt can discuss insulin versus 3 diabetic medication regimen for outpatient tx. (3) Aspirin long-term use: Patient takes quite a bit of aspirin at home. Reports 975 mg daily. No tinni tus reported. Salicylate level <3. advised to d/c aspirin going forward as he has no indication for this - May use tylenol/NSAIDs for pain Total Time Total Time Spent Total Time Spent (In Minutes): 30 Discharge Plan Discharge Items Patient Disposition: Home - Self-Care Reason For Visit: SCROTAL PAIN Discharge Diagnosis: Scrotal Abscess, DM2 Activity: Per Instructions section Non-emergency contact: Primary Care Provider and Urologist Call non-emergency contact if: you have any medication questions Follow-up/Referrals: Natividad Tinoco DO, FACEP [Physician] - 12/21/22 9:00 am Alf Andrea DO [Physician] - 12/26/22 1:45 pm PCP,NO [Primary Care Provider] - (PATIENT IS VISITING FROM [place]. NO PCP IN AREA.) Diet: Carb Consistent or DM2 Addtl Attending Provider Instructions: You were admitted to the hospital for a scrotal abscess that was drained by our urology team. You have been receiving antibiotics and daily wound care for the drained abscess. Going forward, you will continue antibiotics with bactrim for the next 7-10 days (finish antibiotic to completion). You will also follow with wound care outpatient 2-3x/wk so they can change your wound packing/dressing. Tylenol for pain control. You were also found to have uncontrolled diabetes with a very high A1c level. We controlled you sugars in the hospital with insulin and you met with our consumer educator. Going forward, you should continue taking insulin in the outpatient setting. All supplies have been sent to your pharmacy. You will need to find a primary care provider after discharge to further discuss your diabetes. They can decide whether to keep you on insulin or switch to an oral regimen but regardless your diabetes needs to be controlled. Summary: Meds sent to [facility] pharmacy ([facility]) -complete antibiotics- Bactrim DS 2x/day to completion -follow up with urology in 1 wk -follow up with wound care for dressing change- next appointment Saturday12/21/22 @ 9am. Wound care #[phone] -Continue using insulin as taught in the hospital. You should follow up with a primary care provider for further guidance and medication management. Also, please no longer take daily aspirin. If you need help with pain control you may take tylenol or NSAIDs sparingly. Addtl Director Of Residential Services Provider Instructions: You are scheduled for follow-up in the urology office with Dr. Andrea on 12/26/2022 at 1:45PM. Please call the urology office at [phone] with any questions, concerns or need to reschedule appointments for any reason. We are happy to assist you. When to call [facility] at [phone]: Fever of 101F or higher, chills, nausea, or vomiting Symptoms of infection including redness, swelling, warmth, or bad-smelling drainage Heavy bleeding Pain that is not controlled with medicine Problems urinating or inability to urinate Pending Studies at Discharge: Yes (Wound cx) Stand-Alone Forms: [facility], Smoking Cessation Medications and DC Order Prescriptions: New sulfamethoxazole-trimethoprim [Bactrim DS] 800-160 mg tablet 1 tab PO BID Qty: 15 0RF Rx Instructions: next dose evening 12/20 (DME) lancets [OneTouch Delica Lancets] 33 gauge misc See Rx Instructions .Route Qty: 100 0RF Rx Instructions: As directed (DME) OneTouch Verio test strips Strip See Rx Instructions .Route Qty: 100 0RF Rx Instructions: As directed insulin glargine 100 unit/mL (3 mL) insulin pen 60 unit subcut QAM Qty: 15 0RF insulin aspart U-100 [Novolog FlexPen U-100 Insulin] 100 unit/mL (3 mL) insulin pen 1 sliding scale dose subcut USEASDIRECTD Qty: 15 0RF Rx Instructions: Goal BSG Range: Low 110 mg/dL, High 140 mg/dL --Correction Factor: 12 mg/dL/unit --Carbohydrate ratio = 4 g/unit Discontinued aspirin 325 mg Tablet,Delayed Release (Dr/Ec) 975 mg PO DAILY Rx Instructions: TAKES 3 TABS DAILY Discharge Orders: Discharge Order (Routine); Ordered 12/20/22 Ordered By: Aquiles Tabares Admission Data Admit Date/Time: 12/17/22 21:51 Attending Provider: Garth Genao Admit Provider: Carolyn Ortiz Primary Care Provider: PCP,NO Other Providers: Carolyn Ortiz ; Alf Adnrea ; [facility] Other Interventions: Discharge Summary Assessment (RN) Last Done: 12/20/22 15:04 Supervising Physician Co-Signing Physician Notes Attending attestation Pt seen and examined in concert with Dr. Tabares. In agreement with the documented findings as noted in the resident documentation with any exceptions or additions as noted here. Pain continues to improve and has used oxycodone rarely for control in the last 24 hours. Understanding re: glycemic control and insulin use and to d/w PCP re: possible transition to alternative regimen based on glycemic control. On examination, S1/S2 nl RRR no MCG. CTAB. Abd NT/ND BS+ve DMII with hyperglycemia - continue basal/bolus and FSBS glucose monitoring, supplies provided. DM education Scrotal abscess s/p I&D - urology consult - transition to PO bactrim DS to complete course with urologic follow up and wound care for packing changes 2/2 location. Pinpoint growth on Cx pending at time of discharge to be followed by inpatient team. Else see resident documentation as noted. Total attending physician time spent with this patient's care on the day of discharge: 35 minutes. Resident Activity Tracking Resident Involvement: Resident Care Provided Care Provided: Adult Hospital Medicine
== END 2022-12-20 15:32 | disposition home or self-care (01) ==
LOC: 3N 16:22 → ED 16:22 → SUATTDRO 21:51 → 3N 23:35